=== PATIENT | female | born 1975 | race Two or more races ===

== ENCOUNTER 2017-10-23 17:36 | Emergency (ER) | payer BC ==
[~2017-10-23] VITALS: Ht 162.6 cm; Wt 65.8 kg
[2017-10-23 17:48] VITALS: BP 110/73
[2017-10-23] MEDS ORDERED: IBUPROFEN 600 MG TABLET PO ONE ×2 (18:54→19:00)
[2017-10-23 19:00] LABS: APPEARANCE,URINE Slightly Cloudy (CLEAR); BILIRUBIN,URINE Negative (NEGATIVE); BLOOD, URINE Moderate Ery/uL (NEGATIVE); COLOR,URINE Yellow (YELLOW); KETONES,URINE Negative (NEGATIVE); LEUKOCYTE ESTERASE ,URINE Small (NEGATIVE); NITRITE, URINE Negative (NEGATIVE); PROTEIN,URINE Negative (NEGATIVE); UGLUCOSE Negative (NEGATIVE); UROBILINOGEN,URINE 0.2 EU/dL (0.2)
[2017-10-23 19:19] LABS: BACTERIA,URINE Few /HPF (None Seen); SQUAMOUS EPITHELIAL CELL,UR Few /HPF (None Seen)
== END 2017-10-23 19:47 | disposition home or self-care (01) ==
LOC: ER 17:38
DX: N39.0 Urinary tract infection, site not specified (principal); K59.00 Constipation, unspecified; N83.209 Unspecified ovarian cyst, unspecified side
CPT/HCPCS: 81001; 84703; 87086; 99284; A4606; 81000-TC; Z7610

== ENCOUNTER 2019-09-18 12:08 | Emergency (ER) | payer BC, MEDICAID ==
[~2019-09-18] VITALS: Ht 162.6 cm; Wt 72.6 kg
[2019-09-18 12:17] VITALS: BP 109/69
[2019-09-18] MEDS ORDERED: KETOROLAC TROMETHAMINE INJ 30 MG/ML VIAL ONE (12:26)
[2019-09-18] MEDS ORDERED: KETOROLAC TROMETHAMINE INJ 60 MG/2 ML VIAL IM ONE (12:30)
== END 2019-09-18 12:36 | disposition home or self-care (01) ==
LOC: ER 12:12
DX: S29.012A Strain of muscle and tendon of back wall of thorax, initial encounter (principal); S39.012A Strain of muscle, fascia and tendon of lower back, initial encounter; X58.XXXA Exposure to other specified factors, initial encounter; Y93.89 Activity, other specified; Y92.89 Other specified places as the place of occurrence of the external cause; Y99.8 Other external cause status
CPT/HCPCS: 96372; 99283; J1885